=== PATIENT | male | born 1945 | race Two or more races ===

== ENCOUNTER 2021-05-12 13:45 | Outpatient (CLI) | payer MEDICARE, OTHER | END 2021-05-12 23:59 | disposition home or self-care (01) | LOC: WOU 13:45 | PROVIDERS: ATTEND Anesthesiology | DX: M46.96 Unspecified inflammatory spondylopathy, lumbar region (principal); G89.4 Chronic pain syndrome; M62.830 Muscle spasm of back; M25.562 Pain in left knee; M25.561 Pain in right knee; M25.9 Joint disorder, unspecified; F11.20 Opioid dependence, uncomplicated ==

== ENCOUNTER 2021-06-09 13:00 | Outpatient (CLI) | payer MEDICARE, OTHER | END 2021-06-09 23:59 | disposition home or self-care (01) | LOC: MSC 13:00 | PROVIDERS: ATTEND Anesthesiology | DX: G89.4 Chronic pain syndrome (principal); M46.96 Unspecified inflammatory spondylopathy, lumbar region; M62.830 Muscle spasm of back; M25.562 Pain in left knee; M25.561 Pain in right knee; M25.9 Joint disorder, unspecified; F11.20 Opioid dependence, uncomplicated; Z79.1 Long term (current) use of non-steroidal anti-inflammatories (NSAID) ==

== ENCOUNTER 2021-07-21 14:05 | Outpatient (CLI) | payer MEDICARE, OTHER | END 2021-07-21 23:59 | disposition home or self-care (01) | LOC: MSC 14:05 | PROVIDERS: ATTEND Anesthesiology | DX: M46.96 Unspecified inflammatory spondylopathy, lumbar region (principal); M62.830 Muscle spasm of back; G89.4 Chronic pain syndrome; M25.9 Joint disorder, unspecified; M25.561 Pain in right knee; M25.562 Pain in left knee; F11.20 Opioid dependence, uncomplicated ==